=== PATIENT | male | born 1980 | race Caucasian/White ===

== ENCOUNTER 2021-02-04 18:18 | Outpatient (REF) | payer SELFPAY ==
[2021-02-08 10:44] LABS: Lyme Ab w Rflx to Lyme Confirm Negative (Negative)
[2021-02-08 20:41] LABS: Anaplasma phagocytophilum Negative (Negative); B. miyamotoi PCR Negative (Negative); Babesia divergens/MO-1 Negative (Negative); Babesia duncani Negative (Negative); Ehrlichia chaffeensis Negative (Negative); Ehrlichia ewingii/canis Negative (Negative); Ehrlichia muris eauclairensis Negative (Negative)
[2021-02-08 21:48] LABS: Babesia microti Positive (Negative)
== END 2021-02-04 18:19 | disposition home or self-care (01) ==
LOC: LBN 18:18
PROVIDERS: Visit Provider Nurse Practitioner Family
DX: W57.XXXA Bitten or stung by nonvenomous insect and other nonvenomous arthropods, initial encounter (principal); T14.8XXA Other injury of unspecified body region, initial encounter
CPT/HCPCS: 87798; 86618

== ENCOUNTER 2021-03-22 13:40 | Outpatient (REF) | payer SELFPAY ==
[2021-03-23 01:59] LABS: COVID-19 RT-PCR UVMMC Result Negative (Negative)
[2021-03-23 11:20] LABS: Lyme Ab w Rflx to Lyme Confirm Negative (Negative)
[2021-03-24 19:34] LABS: Anaplasma phagocytophilum Negative (Negative); B. miyamotoi PCR Negative (Negative); Babesia divergens/MO-1 Negative (Negative); Babesia duncani Negative (Negative); Babesia microti Negative (Negative); Ehrlichia chaffeensis Negative (Negative); Ehrlichia ewingii/canis Negative (Negative); Ehrlichia muris eauclairensis Negative (Negative)
== END 2021-03-22 13:41 | disposition home or self-care (01) ==
LOC: LBN 13:40
PROVIDERS: Visit Provider Physician Assistant
DX: R42 Dizziness and giddiness (principal); Z20.822 Contact with and (suspected) exposure to COVID-19
CPT/HCPCS: 87798; U0003; 86618